=== PATIENT | male | born 1955 | race Caucasian/White ===

== ENCOUNTER → 2016-12-09 | Outpatient (CLI) | payer MEDICARE ==
[~2016-12-09] MED LIST: AMLO5TAB2 PO; CEPH500C PO; FURO-125 PO; GABA-488 PO; GLIP5TAB13 PO; HYDR-3812 PO; LISI10TA2 PO
--- OUTSIDE RECORDS SUMMARY | 2016-12-09 12:28 | XMS REPORT | Continuity of Care Document ---
Author Author [facility] Organization [facility] Address Unknown Phone Unavailable Care Team Providers Care Mechanic Name Role Phone PCP Unavailable Source Comments Some departments are not documenting in the electronic medical record. If you do not see the information that you expected, contact Release of Information in the Health Information Management department at [phone] for further assistance in locating additional records.[facility] Active Allergies and Adverse Reactions Not [...]
[2016-12-09 12:59] LABS: BASOPHILS # (AUTO) 0.1 10^3/uL (0.0-0.1); BASOPHILS % (AUTO) 1 % (0-10); EOSINOPHILS # (AUTO) 0.3 10^3/uL (0.0-0.3); EOSINOPHILS % (AUTO) 4 % (0-10); LYMPHOCYTES # (AUTO) 1.9 X 10^3 (1.0-4.0); LYMPHOCYTES % (AUTO) 22 % (12-44); MEAN CORPUSCULAR HEMOGLOBIN 29 PG (25-34); MEAN CORPUSCULAR HGB CONC 32 G/DL (32-36); MEAN CORPUSCULAR VOLUME 92 FL (80-99); MEAN PLATELET VOLUME 9.5 FL (7.4-10.4); MONOCYTES # (AUTO) 0.6 X 10^3 (0.0-1.0); MONOCYTES % (AUTO) 6 % (0-12); NEUTROPHILS # (AUTO) 5.9 X 10^3 (1.8-7.8); NEUTROPHILS % (AUTO) 67 % (42-75); PLATELET COUNT 313 10^3/uL (130-400); RED BLOOD COUNT 4.22 10^6/uL (4.35-5.85); RED CELL DISTRIBUTION WIDTH 15.3 % (10.0-14.5); WHITE BLOOD COUNT 8.8 10^3/uL (4.3-11.0)
[2016-12-09 13:15] LABS: ERYTHROCYTE SEDIMENTATION RATE 60 MM/HR (0-30)
[2016-12-09 13:21] LABS: ALBUMIN 3.8 G/DL (3.2-4.5); BILIRUBIN,TOTAL 0.3 MG/DL (0.1-1.0); CALCIUM 9.2 MG/DL (8.5-10.1); CREATININE SERUM 2.33 MG/DL (0.60-1.30); POTASSIUM 5.3 MMOL/L (3.6-5.0); TOTAL PROTEIN 8.6 G/DL (6.4-8.2)
--- NOTE | 2016-12-09 15:24 | Diagnostic Imaging Report ---
INDICATION: Right heel pain. FINDINGS: Three views of the right foot do not show any evidence of acute fracture or dislocation. There is some osteolysis on the plantar surface of the ball of the calcaneus that could be osteomyelitis. IMPRESSION: Some deformity on the plantar surface of the calcaneus that could be due to osteomyelitis. Dictated by: Dictated on workstation # [id number]
== END ==
LOC: RAD 12:24
PROVIDERS: ATTEND Surgery
DX: E11.621 Type 2 diabetes mellitus with foot ulcer (principal); L97.414 Non-pressure chronic ulcer of right heel and midfoot with necrosis of bone; I70.234 Atherosclerosis of native arteries of right leg with ulceration of heel and midfoot; I89.0 Lymphedema, not elsewhere classified; J44.9 Chronic obstructive pulmonary disease, unspecified; M86.471 Chronic osteomyelitis with draining sinus, right ankle and foot
CPT/HCPCS: 36415; 73630; 80053; 83036; 85025; 85652

== ENCOUNTER 2016-12-14 10:35 | Outpatient (CLI) | payer MEDICARE ==
[~2016-12-14] VITALS: Ht 180.3 cm; Wt 126.6 kg
--- OUTSIDE RECORDS SUMMARY | 2016-12-14 10:39 | XMS REPORT | Continuity of Care Document ---
Author Author [facility] Organization [facility] Address Unknown Phone Unavailable Care Team Providers Care Search Consultant Name Role Phone PCP Unavailable Source Comments Some departments are not documenting in the electronic medical record. If you do not see the information that you expected, contact Release of Information in the Health Information Management department at [phone] for further assistance in locating additional records.[facility] Active Allergies and Adverse Reactions Not on [...]
[2016-12-14] MEDS ORDERED: LISI10TA2 PO (10:57)
[2016-12-14] MEDS ORDERED: AMLO5TAB2 PO (10:57)
[2016-12-14] MEDS ORDERED: GLIP5TAB13 PO (10:57)
[2016-12-14] MEDS ORDERED: FURO-125 PO (10:57)
[2016-12-14] MEDS ORDERED: GABA-488 PO (10:57)
[2016-12-14 11:02] VITALS: BP 137/60
[2016-12-14 11:23] LABS: ALBUMIN 3.2 G/DL (3.2-4.5); BILIRUBIN,TOTAL 0.2 MG/DL (0.1-1.0); CALCIUM 8.4 MG/DL (8.5-10.1); CREATININE SERUM 2.11 MG/DL (0.60-1.30); POTASSIUM 5.1 MMOL/L (3.6-5.0); TOTAL PROTEIN 7.6 G/DL (6.4-8.2)
[2016-12-18] MEDS ORDERED: CEPH500C PO (11:04)
[2016-12-18] MEDS ORDERED: HYDR-3812 PO (11:04)
== END 2016-12-14 14:23 | disposition home or self-care (01) ==
LOC: PREOP 10:35
PROVIDERS: ATTEND Podiatrist Foot & Ankle Surgery
DX: Z01.812 Encounter for preprocedural laboratory examination (principal); Z11.2 Encounter for screening for other bacterial diseases; M86.9 Osteomyelitis, unspecified
CPT/HCPCS: 36415; 80053; 87081

== ENCOUNTER 2016-12-17 11:35 | Day surgery (SDC) | payer MEDICARE ==
[~2016-12-17] VITALS: Ht 180.3 cm; Wt 126.6 kg
[~2016-12-17 11:35] MED LIST changes: -CEPH500C PO; -HYDR-3812 PO
--- OUTSIDE RECORDS SUMMARY | 2016-12-17 11:38 | XMS REPORT | Continuity of Care Document ---
Author Author [facility] Organization [facility] Address Unknown Phone Unavailable Care Team Providers Care Steam Pipe Fitter Name Role Phone PCP Unavailable Source Comments Some departments are not documenting in the electronic medical record. If you do not see the information that you expected, contact Release of Information in the Health Information Management department at [phone] for further assistance in locating additional records.[facility] Active Allergies and Adverse Reactions Not [...]
--- OUTSIDE RECORDS SUMMARY | 2016-12-17 11:39 | XMS REPORT | Continuity of Care Document ---
Author Author [facility] Organization [facility] Address Unknown Phone Unavailable Care Team Providers Care Android Ui Developer Name Role Phone PCP Unavailable Source Comments Some departments are not documenting in the electronic medical record. If you do not see the information that you expected, contact Release of Information in the Health Information Management department at [phone] for further assistance in locating additional records.[facility] Active Allergies and Adverse Reactions Not [...]
[2016-12-17] MEDS ORDERED: LIDOCAINE PF 2% 10 ML (XYLOCAINE) AMP ONE (11:46)
[2016-12-17] MEDS ORDERED: proPOfol 200 MG/20 ML (DIPRIVAN) VIAL IV ONE (11:46)
[2016-12-17] MEDS ORDERED: SEVOFLURANE (ULTANE) 15 ML INHAL SOLN ONE ×3 (11:46→14:17)
[2016-12-17] MEDS ORDERED: ONDANSETRON 4 MG/2 ML (SDV) Z0FRAN ONE ×2 (11:46→14:46)
[2016-12-17] MEDS ORDERED: LACTATED RINGERS 1,000 ML IV ONE (11:46)
[2016-12-17] MEDS ORDERED: fentaNYL INJECTION 100 MCG/2 ML AMP ONE (11:47)
[2016-12-17] MEDS ORDERED: MIDAZOLAM 2 MG/2 ML (VERSED) VIAL ONE (11:47)
[2016-12-17] MEDS ORDERED: ceFAZolin 1,000 MG (ANCEF) VIAL ONE (11:50)
[2016-12-17] MEDS ORDERED: NORMAL SALINE (BAXTER MINI) 50 ML IV ONE (11:50)
[2016-12-17] MEDS ORDERED: ceFAZolin 1 GM/NS 50 ML IVPB IV ONE ×2 (12:00)
[2016-12-17] MEDS ORDERED: CATHETER FLUSH 10 ML SYR IV PRN (12:00)
[2016-12-17] MEDS ORDERED: GENTAMICIN 40 MG/ML 2 ML INJ SDV ONE (12:11)
[2016-12-17 12:26] VITALS: BP 143/74
[2016-12-17] MEDS ORDERED: BUPIVACAINE 0.5% 30 ML (SENSORCAINE) VIAL ONE (12:32)
[2016-12-17] MEDS ORDERED: LIDOCAINE 1% INJ 20 ML (XYLOCAINE) VIAL ONE (12:32)
--- NOTE | 2016-12-17 12:48 | Progress Note-Pre Operative ---
Pre-Operative Progress Note H&P Reviewed The H&P was reviewed, patient examined and no changes noted. Date H&P Reviewed: Dec 17, 2016 Time H&P Reviewed: 12:48 Pre-Operative Diagnosis: Osteomyelitis of the right calcaneus ANJU GARCIA DPM Dec 17, 2016 12:48 pm
[2016-12-17] MEDS ORDERED: LACTATED RINGERS 1,000 ML IV PRN (12:51)
--- NOTE | 2016-12-17 14:41 | Progress Note-Post Operative ---
Post-Operative Progess Note Pre-Operative Diagnosis Osteomyelitis of the right calcaneus Post-Operative Diagnosis Same Post-Op Procedure Note Date of Procedure: Dec 17, 2016 Name of Procedure: Partial Calcanectomy, right I&D of right foot ulcer Anesthesia Type General Estimated blood loss (mL): 100 ml Packing: drain, antibiotic beeds, iodoform packing Specimen(s) collected Calcaneal tuberosity, soft tissue (sinus) ANJU GARCIAM Dec 17, 2016 2:41 pm
[2016-12-17] MEDS ORDERED: ONDANSETRON 4 MG/2 ML (SDV) Z0FRAN IV PRN (14:45)
[2016-12-17] MEDS ORDERED: PROMETHAZINE INJ 25 MG/ML (PHENERGAN) AMP IV PRN (14:45)
[2016-12-17] MEDS ORDERED: morphine INJ 10 MG/ML 1ML (SYR OR VIAL) ONE (14:46)
[2016-12-17] MEDS: LACTATED RINGERS 1,000 ML IV SCH ×2 (14:49→21:44)
[2016-12-17] MEDS: morphine INJ 10 MG/ML 1ML (SYR OR VIAL) IV PRN ×3 (14:54→15:11)
[2016-12-17 16:00] VITALS: BP 150/78
--- NOTE | 2016-12-17 16:11 | Physical Therapy Daily Note ---
PT Daily Note-Current Subjective Patient in bed pre tx, agrees to PT, no pain. Patient is NWB through right leg. Patient states he just has one very small step to go up at his apartment and he will have some family stay with him for a while. Appearance Patient sitting EOB post tx, has nurse call, phone, tray, all needs met. Mental Status Patient Orientation: Normal For Age Attachments: IV Transfers Functional [place] Measure 0=Not Assessed/NA 4=Minimal Assistance 1=Total Assistance 5=Supervision or Setup 2=Maximal Assistance 6=Modified [place] 3=Moderate Assistance 7=Complete IndependenceIRFPAI Quality Coding Scale 6 Independent with activity with or without an assistive device 5 Patient requires set up or clean up by helper. Patient completes activity by themselves 4 Supervision or touching assist (CGA). [place] provide cues , steadying assist 3 The helper provides less than half the effort to complete the activity 2 The helper provides more than half the effort to complete the activity 1 Dependent. The helper does all the effort to complete an activity 7 Patient refused to complete or attempt activity 9 The patient did not perform the activity before the current illness or injury 88 Not attempted due to Medical conditions or safety concerns Transfers (B, C, W/C) (FIM): 4 (CGA) Scootin Rollin Supine to/from Sit: 5 Sit to/from Stand: 4 Patient is not compliant with his weight bearing status. Even after reminding him, he still puts too much weight through it, he says he is just touching the ball of his feet to the floor. Weight Bearing Weight Bearing Restriction: Non Weight Bearing Location Restriction: RT FOOT Gait Training Gait (FIM): 1 Distance: 20' Gait Level of Assist: 4 Gait Persons Needed: 1 Gait Assistive Device: FWW unsteady, impulsive, patient bears too much weight through right foot Exercises Seated Therapy Exercises: Ankle pumps, Long arc quads, Hip flexion Seated Reps: 20 Treatments bed mobility and transfers, ambulation, functional strengthening Assessment Patient needs the rolling walker for balance during ambulation, does not comply with his weight bearing status. PT Manager Enrollment Goals Manager Enrollment Goals PT Snf Goals Time Frame: Dec 24, 2016 Transfers (B,C,W/C) (FIM): 6 Gait (FIM): 6 Distance: 150' Gait Assistive Device: FWW PT Plan Problem List Problem List: Activity Tolerance, Functional Strength, Safety, Balance, Gait, Transfer, Bed Mobility Treatment/Plan Treatment Plan: Continue Plan of Care Treatment Plan: Bed Mobility, Education, Functional Activity Jayme, Functional Strength, Gait, Safety, Therapeutic Exercise, Transfers Treatment Duration: Dec 24, 2016 # of days/week 5-6 Visits Per Week: 5-6 Minutes/Day (M-F): 15-30 Minutes/Day (Sat/[place]): 15-30 Pt/Family Agrees w/Plan: Yes Safety Risks/Education Patient Education: Gait Training, Transfer Techniques, Safety Issues Teaching Recipient: Patient Teaching Methods: Demonstration, Discussion Response to Teaching: Reinforcement Needed Discharge Recommendations Plan Patient will perform bed mobility and transfer training, balance and endurance training, functional strengthening, stair training, gait training, and education , to improve functional mobility and independence at home. Therapy D/C Recommendations: Home w/ Family Support Time/GCodes Time In: 1545 Time Out: 1600 Total Billed Treatment Time: 15 Total Billed Treatment 1 visit EVL 15 min G Codes Necessary: Yes PT/OT Therapy GCodes Therapy Functional Limitation: Physical Therapy Test(s)/Tool used to determine: Level of Assistance Scale Functional Limitation-Current Charge Code: MOBCUR Modifier: CJ Functional Limitation-Goal Charge Code: MOBGOAL Modifier: SYDNEY VILLEDA PT Dec 17, 2016 16:11
--- NOTE | 2016-12-17 17:04 | Diagnostic Imaging Report ---
INDICATION: Right heel pain. DISCUSSION: Fluoroscopic support is provided during partial right calcanectomy. Please see the operative report for full detail. Fluoroscopy time: 5 seconds. IMPRESSION: 1. Intraoperative right calcanectomy. Dictated by: Dictated on workstation # [id number]
[2016-12-17] MEDS: FUROSEMIDE 20 MG (LASIX) TAB PO SCH (18:54)
[2016-12-17] MEDS ORDERED: GABA-488 PO (18:56)
[2016-12-17] MEDS: HYDROcodone/APAP 5 MG/325 MG (LORTAB) TAB PO PRN (19:45)
[2016-12-17] MEDS: GABAPENTIN 300 MG (NEURONTIN) CAP PO SCH (19:51)
[2016-12-17 20:00] VITALS: BP 149/80
[2016-12-17] MEDS ORDERED: glipiZIDE 5 MG (GLUCOTROL) TAB PO SCH (21:00)
[2016-12-17] MEDS ORDERED: GABAPENTIN 300 MG (NEURONTIN) CAP PO SCH ×2 (21:00)
[2016-12-17] MEDS ORDERED: glipiZIDE 5 MG (GLUCOTROL) TAB ONE (21:33)
[2016-12-17] MEDS: glipiZIDE 5 MG (GLUCOTROL) TAB PO SCH (21:43)
[2016-12-17] MEDS: ceFAZolin INJECTION 1,000 MG in NORMAL SALINE (BAXTER MINI) 50 ML IV SCH (21:44)
[2016-12-18] VITALS: BP 133/71
[2016-12-18] MEDS: HYDROcodone/APAP 5 MG/325 MG (LORTAB) TAB PO PRN ×2 (00:46→11:06)
[2016-12-18 04:00] VITALS: BP 158/95
[2016-12-18] MEDS: LACTATED RINGERS 1,000 ML IV SCH ×2 (04:09→08:43)
[2016-12-18] MEDS: FUROSEMIDE 20 MG (LASIX) TAB PO SCH (06:04)
[2016-12-18] MEDS: ceFAZolin INJECTION 1,000 MG in NORMAL SALINE (BAXTER MINI) 50 ML IV SCH (06:04)
[2016-12-18] MEDS: glipiZIDE 5 MG (GLUCOTROL) TAB PO SCH (06:05)
[2016-12-18 07:52] VITALS: BP 162/74
[2016-12-18] MEDS: GABAPENTIN 300 MG (NEURONTIN) CAP PO SCH (07:56)
[2016-12-18] MEDS ORDERED: lisINopril 10 MG (PRINIVIL) TAB PO SCH (09:00)
[2016-12-18] MEDS ORDERED: amLODIPine 5 MG (NORVASC) TAB PO SCH (09:00)
--- NOTE | 2016-12-18 11:01 | Podiatry Progress Note ---
Standard Progress Note Progress Notes/Assess & Plan Progress/Assessment & Plan Post op day #1. Doing well. Pain controlled with PO medication. Denies F/C/N/ V. Vital Signs Date Time Temp Pulse Resp B/P Pulse Ox O2 Delivery O2 Flow Rate FiO2 12/18/16 09:00 96 12/18/16 07:52 98.3 63 20 162/74 96 Room Air 12/18/16 04:00 97.3 75 18 158/95 97 Room Air 12/18/16 00:00 98.5 69 20 133/71 94 Room Air 12/17/16 20:00 98.0 70 16 149/80 95 Room Air 12/17/16 16:00 96.5 66 16 150/78 98 Room Air 12/17/16 12:26 98.7 81 18 143/74 98 Room Air I & O 12/18/16 07:00 Intake Total 3618 ml Output Total 1500 ml Balance 2118 ml Dressing intact right foot. There is some drainage to the dressing but not excessive. Vascular status intact right foot. S/P partial calcanectomy right foot with I&D Plan: Removed drain and repacked the wound with iodoform, sterile dressing. He is to follow up in the [facility] wound care clinic on Tuesday at 10:30 am. He is to be non-weight bearing right foot. Keep the dressing dry, clean and intact until wound care clinic. Final Diagnosis Osteomyelitis of the right calcaneus ANJU GARCIA DPM Dec 18, 2016 11:01
[2016-12-18] MEDS ORDERED: HYDR-3812 PO (11:04)
[2016-12-18] MEDS ORDERED: CEPH500C PO (11:04)
--- NOTE | 2016-12-18 11:07 | Discharge Inst-Simple/Standard ---
Discharge Inst-Standard Discharge Medications New, Converted or Re-Newed RX: RX Given to Pt/Family Patient Instructions/Follow Up Plan of Care/Instructions/FU: He is to be Non-Weight bearing on the right foot. Wound Care Clinic TuesdayDec 20, at 10:30am Activity as Tolerated: No Discharge Diet: ADA Diet Return to The Hospital For: Excessive pain or bleeding ANJU GARCIA DPM Dec 18, 2016 11:07
[2016-12-18 12:51] VITALS: BP 162/74
--- NOTE | 2016-12-18 23:16 | OPERATIVE REPORT ---
PROCEDURE PHYSICIAN: ANJU GARCIA DATE OF PROCEDURE: 12/17/2016 PREOPERATIVE DIAGNOSIS: Osteomyelitis, right calcaneus with draining sinus. POSTOPERATIVE DIAGNOSIS: Osteomyelitis, right calcaneus with draining sinus. PROCEDURE: Partial calcanectomy with I&D of right draining sinus. WOUND CLASS: Contaminated. ANESTHESIA: General. HEMOSTASIS: Pneumatic thigh tourniquet at 350 mmHg. INDICATION: This 61-year-old male presents with ulceration to the right plantar heel with confirmed osteomyelitis of the calcaneal tuberosity per MRI. The patient was seen at the [facility] at [facility] and referred to my office for surgical intervention. The patient is agreeable to surgical intervention after risks and complications were discussed at length but no guarantees were extended to the patient. He understands that there could be continued infection, need for further surgery and/or amputation and he is willing to proceed. PROCEDURE: The patient was brought back to the operating table, placed in a secure, supine position. General anesthetic was introduced. Appropriate timeout was performed. The right foot was prepped and draped in normal sterile manner. Of course there was a thigh tourniquet placed on the right lower extremity. The right leg was then elevated and allowed to exsanguinate after which the tourniquet was inflated to 350 mmHg. Attention was then directed to a medial aspect of the left heel where a 4.5 cm longitudinal linear incision was created. There was sharp and blunt dissection carried out to the calcaneus where C-arm confirmed the predetermined portion of the calcaneus to be resected which is tuberosity. The calcaneal tuberosity was then resected with a power sagittal saw and sent for gross and microscopic evaluation. A rongeur was then utilized to resect some bone of the inferior calcaneus to be sent for culture and sensitivity. The full-thickness ulceration that extended directly down to bone was sharply debrided of all necrotic tissue and there was scar tissue consistent with a draining sinus to the calcaneus. All of this was debrided sharply and sent for gross and microscopic evaluation. The wound was then flushed with power irrigation, 1000 mL with 80 of gentamicin. After the flush, a swab culture was taken before closure. Polymethacrylate beads were then created with gentamicin impregnated within the beads. 10 were placed on 27-gauge wire and placed in the medial incision and then an additional 6 beads were placed on a 2-0 Prolene to the inferior ulceration. The medial incision was then reapproximated with 3-0 Vicryl for subcutaneous reapproximation and then a simple interrupted type stitch for skin closure with 3-0 Prolene. Next a Sheba drain was placed through the sinus drainage area, half-inch, as well as half-inch iodoform was packed inside the wound. Postoperative injection consisted of 17 mL of 0.5% Marcaine injected in local infusion to the surgical site followed by a dressing of Betadine soaked Adaptic, sterile 4 x 4's, fluffs, ABD, all secured with Kerlix and Aramis wrap. The patient tolerated the anesthesia and procedure well and was transported from the operating room to the recovery area with vital signs stable and vascular status intact to the right foot. Postoperative instructions were dispensed to the patient. He is to be nonweightbearing on the right. We are going to hold him over for 23 hour observation and probable pull the drain tomorrow. We will see the patient back in the office in 10 days period of time. In the meantime, he is to have [facility]. Job ID: [id number] Dictated Date: 12/17/2016 14:48:37 Territory Business Manager Date: 12/18/2016 23:01:58 / lucia
--- NOTE | 2017-01-03 14:13 | Physical Therapy Evaluation ---
PT Evaluation-General Medical Diagnosis Admission Date December 17, 2016 Medical Diagnosis: right foot surgery Onset Date: Dec 17, 2016 Therapy Diagnosis Therapy Diagnosis: impaired mobility Height/Weight Height (Feet): 5 Height (Inches): 11.00 Weight (Pounds): 279 Weight (Ounces): 3.0 Precautions Precautions/Isolations: Fall Prevention, Standard Precautions Weight Bear Status Weight Bearing Restriction: Non Weight Bearing Location Restriction: RT FOOT Referral Physician: Jean Larson DPM Reason for Referral: Evaluation/Treatment Medical History Additional Medical History osteomyelitis right foot Current History Patient was having an elective surgery in [facility] and needed to be admitted to inpatient floor. Social History Home: Apartment Current Living Status: Alone PT Steps Into Home: 1 Patient states he will have family stay with him. Prior/Core FIM Prior Level of Function Functional [place] Measure 0=Not Assessed/NA 4=Minimal Assistance 1=Total Assistance 5=Supervision or Setup 2=Maximal Assistance 6=Modified [place] 3=Moderate Assistance 7=Complete [place] Bed Mobility: 7 Transfers (B,C,W/C) (FIM): 7 Gait: 7 PT Evaluation-Current Subjective Patient in bed pre tx, agrees to PT, no pain. Patient is NWB through right leg. Patient states he just has one very small step to go up at his apartment and he will have some family stay with him for a while. Pain Numeric Pain Scale: 0-No Pain Pt/Family Goals to be independent at home Objective Patient Orientation: Normal For Age Attachments: IV ROM/Strength ROM Lower Extremities WNL but not tested on right foot Strenght Lower Extremities 5/5 bilateral lower extremities but not tested right ankle Integumentary/Posture Bowel Incontinence: No Bladder Incontinence: No Neuromuscular (Tone, Coordination, Reflexes) WNL Sensory Vision: Functional Hearing: Functional Transfers Functional [place] Measure 0=Not Assessed/NA 4=Minimal Assistance 1=Total Assistance 5=Supervision or Setup 2=Maximal Assistance 6=Modified [place] 3=Moderate Assistance 7=Complete [place] Transfers (B, C, W/C) (FIM): 4 Scootin Rollin Supine to/from Sit: 5 Sit to/from Stand: 4 Patient is not compliant with his weight bearing status. Even after reminding him, he still puts too much weight through it, he says he is just touching the ball of his feet to the floor. Gait Mode of Locomotion: Walk Anticipated Mode of Locomotion: Walk Gait (FIM): 1 Distance: 20' Gait Level of Assist: 4 Gait Persons Needed: 1 Gait Assistive Device: FWW Comments/Gait Description unsteady, impulsive, patient bears too much weight through right foot Balance Sitting Static: Normal Sitting Dynamic: Normal Standing Static: Fair Standing Dynamic: Fair Treatment LAQ, hip flexion, ankle pumps all x 20 Assessment/Needs Patient needs the rolling walker for balance during ambulation, does not comply with his weight bearing status. Rehab Potential: Fair PT Mcfp Goals Mcfp Goals PT Sr. Media Manager Goals Time Frame: Dec 24, 2016 Transfers (B,C,W/C) (FIM): 6 Gait (FIM): 6 Distance: 150' Gait Assistive Device: FWW PT Plan Problem List Problem List: Activity Tolerance, Safety, Balance, Gait, Transfer Treatment/Plan Treatment Plan: Continue Plan of Care Treatment Plan: Bed Mobility, Education, Functional Activity Jayme, Functional Strength, Gait, Safety, Therapeutic Exercise, Transfers Treatment Duration: Dec 24, 2016 # of days/week 5-6 Visits Per Week: 5-6 Minutes/Day (M-F): 15-30 Minutes/Day (Sat/[place]): 15-30 Pt/Family Agrees w/Plan: Yes Safety Risks/Education Patient Education: Gait Training, Transfer Techniques, Safety Issues Teaching Recipient: Patient Teaching Methods: Demonstration, Discussion Response to Teaching: Reinforcement Needed Discharge Recommendations Plan Patient will perform bed mobility and transfer training, balance and endurance training, functional strengthening, stair training, gait training, and education , to improve functional mobility and independence at home. Therapy D/C Recommendations: Home w/ Family Support Time/GCodes Time In: 1545 Time Out: 1600 Total Billed Treatment Time: 15 Total Billed Treatment 1 visit EVL 15 min This evaluation actually took place on 12/17/16. The wrong evaluation was written for him so that one will be cancelled and this new one was written to replace it. PT/OT Therapy GCodes Therapy Functional Limitation: Physical Therapy Test(s)/Tool used to determine: Level of Assistance Scale Functional Limitation-Current Charge Code: MOBCUR Modifier: CJ Functional Limitation-Goal Charge Code: MOBGOAL Modifier: SYDNEY VILLEDA PT Jan 03, 2017 14:13
== END 2016-12-18 18:26 | disposition home or self-care (01) ==
LOC: SDC 11:35 → 4TH 15:40 → UNDOADMIN 15:40 → SDC 12-18 12:00 → UNDODISIN 12-18 18:26
PROVIDERS: ATTEND Podiatrist Foot & Ankle Surgery
DX: M86.471 Chronic osteomyelitis with draining sinus, right ankle and foot (principal); E11.621 Type 2 diabetes mellitus with foot ulcer; L97.519 Non-pressure chronic ulcer of other part of right foot with unspecified severity; J44.9 Chronic obstructive pulmonary disease, unspecified; I73.9 Peripheral vascular disease, unspecified; G47.34 Idiopathic sleep related nonobstructive alveolar hypoventilation
CPT/HCPCS: 82962; 87070; 87075; 87077; 87186; 87205

== ENCOUNTER 2017-01-07 08:57 | Outpatient (RCR) | payer MEDICARE ==
--- OUTSIDE RECORDS SUMMARY | 2016-11-30 09:04 | XMS REPORT | Continuity of Care Document ---
Author Author [facility] Organization [facility] Address Unknown Phone Unavailable Care Team Providers Care Motor Vehicle Parts Interpreter Name Role Phone PCP Unavailable Source Comments Some departments are not documenting in the electronic medical record. If you do not see the information that you expected, contact Release of Information in the Health Information Management department at [phone] for further assistance in locating additional records.[facility] Active Allergies and Adverse Reactions Not on File Current Medications Not on file Active Problems Not on file Social History Tobacco Use Types Packs/Day Years Used Date Never Assessed Plan of Care Health Maintenance Due Date Last Done Comments Physical (Comprehensive) 1962 Exam Pertussis Vaccine 1966 Tetanus Vaccine 1972 Colorectal Cancer 2005 Screening Shingles Vaccine 2015 Influenza Vaccine 07/29/2016 Results from Last 3 Months Not on file
[~2017-01-07 08:57] MED LIST changes: +CEPH500C PO; +HYDR-3812 PO
== END 2017-01-07 14:45 | disposition home or self-care (01) ==
LOC: WOUNDCARE 08:57
PROVIDERS: ATTEND Surgery
DX: E11.621 Type 2 diabetes mellitus with foot ulcer (principal); L97.414 Non-pressure chronic ulcer of right heel and midfoot with necrosis of bone; I70.234 Atherosclerosis of native arteries of right leg with ulceration of heel and midfoot; I89.0 Lymphedema, not elsewhere classified; J44.9 Chronic obstructive pulmonary disease, unspecified; M86.471 Chronic osteomyelitis with draining sinus, right ankle and foot
CPT/HCPCS: 11042; 87070; 87075; 87077; 87186; 87205; 99212

== ENCOUNTER → 2018-09-19 | Outpatient (CLI) | payer MEDICARE ==
[~2018-09-19] MED LIST changes: +ACHD5005 PO; -AMLO5TAB2 PO; +AMLO5TAB7 PO; -HYDR-3812 PO
== END ==
LOC: WOUNDCARE 09:37
PROVIDERS: ATTEND Nurse Practitioner
DX: E11.621 Type 2 diabetes mellitus with foot ulcer (principal); N18.6 End stage renal disease; L97.412 Non-pressure chronic ulcer of right heel and midfoot with fat layer exposed; I70.634 Atherosclerosis of nonbiological bypass graft(s) of the right leg with ulceration of heel and midfoot; Z72.0 Tobacco use
CPT/HCPCS: 99213

== ENCOUNTER → 2018-09-19 | Outpatient (CLI) | payer MEDICARE ==
--- NOTE | 2018-09-19 13:12 | Diagnostic Imaging Report ---
INDICATION: Diabetic ulcer. TIME OF EXAM: 11:27 a.m. FINDINGS: Two views of the calcaneus are obtained. No definite osseous destructive changes are seen to suggest osteomyelitis. There is a calcaneal spur. No soft tissue gas is identified. IMPRESSION: No acute abnormality is detected. Dictated by: Dictated on workstation # [id number]
== END ==
LOC: RAD 10:49
PROVIDERS: ATTEND Nurse Practitioner
DX: E11.621 Type 2 diabetes mellitus with foot ulcer (principal); E11.22 Type 2 diabetes mellitus with diabetic chronic kidney disease; L97.412 Non-pressure chronic ulcer of right heel and midfoot with fat layer exposed; I70.634 Atherosclerosis of nonbiological bypass graft(s) of the right leg with ulceration of heel and midfoot; N18.6 End stage renal disease; Z72.0 Tobacco use
CPT/HCPCS: 73650